=== PATIENT | female | born 1975 | race Caucasian/White ===

== ENCOUNTER → 2023-12-20 | Outpatient (CLI) | payer OTHER | END | disposition home or self-care (01) | LOC: RAH 10:11 | PROVIDERS: ATTEND Family Medicine | DX: N20.0 Calculus of kidney (principal); R10.9 Unspecified abdominal pain | CPT/HCPCS: 76770 ==

== ENCOUNTER → 2025-01-08 | Outpatient (CLI) | payer OTHER ==
--- NOTE | 2025-01-08 13:14 | HMCIMG ---
EXAM: US Retroperitoneum Complete, Renal. CLINICAL HISTORY: Kidney stones. TECHNIQUE: Real-time ultrasound of the retroperitoneum (complete) with image documentation. Sonographic evaluation of the kidneys and urinary bladder. COMPARISON: 12/20/2023 FINDINGS: RIGHT KIDNEY: Measures 10.5 x 4.4 x 5.1 cm. A non-obstructing renal pelvis stone is noted measuring 6.7 mm. No evidence of hydronephrosis. Parenchymal echogenicity and cortical thickness are within normal limits. Overall appearance is stable compared to prior study. LEFT KIDNEY: Measures 11.1 x 4.3 x 4.3 cm. No evidence of nephrolithiasis or hydronephrosis. No left renal calculi or hydronephrosis. Normal cortical echotexture and thickness. BLADDER: Wall thickness measures 4 mm. Bladder is not fully distended. Urinary bladder not fully distended for complete evaluation. IMPRESSION: 1. Stable 6.7 mm right renal pelvis stone without evidence of obstruction. Renal pelvis stone new from prior. 2. No left renal calculi or hydronephrosis. 3. Urinary bladder not fully distended for complete evaluation. /[place]
== END | disposition home or self-care (01) ==
LOC: RAH 10:40
PROVIDERS: ATTEND Family Medicine
DX: N20.0 Calculus of kidney (principal); N32.89 Other specified disorders of bladder
CPT/HCPCS: 76770